=== PATIENT | female | born 2000 | race Hispanic/Latino ===

== ENCOUNTER 2021-05-15 09:58 | Outpatient (CLI) | payer OTHER ==
[2021-05-16 14:11] LABS: SARS-CoV-2 PCR by NAA Not Detected (NotDetected)
== END 2021-05-15 09:59 | disposition home or self-care (01) ==
LOC: CSHLAB 09:58
PROVIDERS: ATTEND Obstetrics & Gynecology
DX: Z20.822 Contact with and (suspected) exposure to COVID-19 (principal)
CPT/HCPCS: U0003; U0005

== ENCOUNTER 2021-05-19 05:30 | Inpatient (IN) | payer OTHER ==
[2021-05-19] MEDS: Lactated Ringer's 1,000 ML IV SCH ×2 (06:56→12:47)
[2021-05-19 07:05] VITALS: BMI 29.6
[2021-05-19] MEDS ORDERED: Methylergonovine 0.2 MG/ML VIAL IM PRN (07:14)
[2021-05-19] MEDS ORDERED: Ondansetron PF 4 MG/2 ML Vial IVP PRN (07:14)
[2021-05-19] MEDS ORDERED: Diphenoxylate HCl/Atropine Tablet PO PRN ×2 (07:14)
[2021-05-19] MEDS ORDERED: HYDROcodone/Acetaminophen 5/325 mg Tablet PO PRN (07:14)
[2021-05-19] MEDS ORDERED: Promethazine HCl 25 MG/ML VIAL IM PRN (07:14)
[2021-05-19] MEDS ORDERED: Acetaminophen 500 MG TAB PO PRN (07:14)
[2021-05-19] MEDS ORDERED: Butorphanol Tartrate 1 MG/ML VIAL SLOW IVP PRN (07:14)
[2021-05-19] MEDS ORDERED: hydrALAZINE 20 MG/ML VIAL SLOW IVP PRN (07:14)
[2021-05-19] MEDS ORDERED: Misoprostol 200 MCG TAB PR PRN (07:14)
[2021-05-19] MEDS ORDERED: Carboprost 250 MCG/ML AMP IM PRN (07:14)
[2021-05-19] MEDS ORDERED: Ibuprofen 800 MG TAB PO PRN (07:14)
[2021-05-19] MEDS ORDERED: Lidocaine 1% (PF) 30 ML VIAL SC PRN (07:14)
[2021-05-19] MEDS ORDERED: NS w/ Oxytocin 30 units 500 ML IVPB SCH (07:15)
[2021-05-19] MEDS ORDERED: NS w/ Oxytocin 30 units 500 ML IV SCH ×2 (07:15)
[2021-05-19] MEDS ORDERED: Misoprostol 200 MCG TAB PO PRN (07:20)
[2021-05-19] MEDS ORDERED: Misoprostol 100 MCG TAB VAG SCH (07:30)
[2021-05-19 08:06] LABS: Mean Corpuscular HGB CONC 32.2 g/dL (32.0-36.0); Mean Corpuscular Volume 77.8 fl (81.6-98.3); Mean Platelet Volume 9.5 fl (7.4-10.4); Platelet Count 224 10x3/uL (150-450); RBC Distribution Width 13.2 % (11.5-14.5); White Blood Cell (WBC) Count 6.4 10x3/uL (3.5-10.5)
[2021-05-19 08:34] LABS: Hep B Surf Ag Non-Reactive S/CO (NonReactive); Syphilis Antibody Nonreactive (Nonreactive); Syphilis Antibody Index 0.04 S/CO (<1.00 Non-Reactive)
[2021-05-19 08:37] LABS: HBSAg Index 0.19 S/CO (0-0.99)
[2021-05-19] MEDS ORDERED: Calcium Carbonate 500 MG ChewTAB PO PRN (22:51)
[2021-05-20] MEDS ORDERED: Bicitra 30 ML UDCUP PO PRN (09:59)
[2021-05-20] MEDS ORDERED: Famotidine/PF 20 mg/2ml Vial SLOW IVP PRN (09:59)
[2021-05-20] MEDS ORDERED: CEFAZOLIN 2 GM in Premix Bag 1 BAG IVPB SCH (10:00)
[2021-05-20] MEDS ORDERED: Azithromycin 500 MG in Sodium Chloride 0.9% 250 ML 250 ML IVPB SCH (10:00)
[2021-05-20] MEDS ORDERED: Phenylephrine 10 MG/ML VIAL ONE (10:10)
[2021-05-20] MEDS ORDERED: Dexamethasone 4 mg/ml Vial ONE (10:10)
[2021-05-20] MEDS ORDERED: Oxytocin 10 UNITS/ML VIAL ONE (10:10)
[2021-05-20] MEDS ORDERED: Ondansetron PF 4 MG/2 ML Vial ONE (10:10)
[2021-05-20] MEDS ORDERED: Fentanyl 100 MCG/2 ML VIAL ONE (10:16)
[2021-05-20] MEDS ORDERED: Morphine PF 10 MG/10 ML VIAL ONE (10:16)
[2021-05-20] MEDS ORDERED: Ketorolac Tromethamine 30 MG/ML VIAL ONE (10:21)
[2021-05-20] MEDS ORDERED: Naloxone HCl 0.4 mg/ml Vial IV PRN (11:54)
[2021-05-20] MEDS ORDERED: Fentanyl 100 MCG/2 ML VIAL SLOW IVP PRN (11:54)
[2021-05-20] MEDS ORDERED: Promethazine HCl 25 MG SUPP PR PRN (11:54)
[2021-05-20] MEDS ORDERED: Promethazine HCl 25 MG/ML VIAL IM PRN ×2 (11:54→15:43)
[2021-05-20] MEDS ORDERED: Ondansetron HCl/PF 4 MG/2 ML Vial IVP PRN (11:54)
[2021-05-20] MEDS ORDERED: Ondansetron PF 4 MG/2 ML Vial IVP PRN ×2 (11:54→15:43)
[2021-05-20] MEDS ORDERED: diphenhydrAMINE 50 MG/ML VIAL IVP PRN (11:54)
[2021-05-20] MEDS ORDERED: Naloxone HCl 0.4 mg/ml Vial IVP PRN ×2 (11:54)
[2021-05-20] MEDS ORDERED: Meperidine HCl/PF 25 MG/ML VIAL SLOW IVP PRN (11:54)
[2021-05-20] MEDS ORDERED: Hydrocerin (Eucerin) Cream 120 gm Jar TOP PRN (11:54)
[2021-05-20] MEDS ORDERED: Ketorolac Tromethamine 30 MG/ML VIAL IVP SCH (12:00)
[2021-05-20] MEDS ORDERED: Communication Order-Pharmacy FS SCH (12:00)
[2021-05-20] MEDS ORDERED: Bisacodyl 10 MG SUPP PR PRN (15:43)
[2021-05-20] MEDS ORDERED: Milk Of Magnesia 30 ML UDCUP PO PRN (15:43)
[2021-05-20] MEDS ORDERED: NS w/ Oxytocin 30 units 500 ML IV SCH (15:43)
[2021-05-20] MEDS ORDERED: Measles/Mumps/Rubella 10 MCG/0.5 ML VIAL SC ONE (15:43)
[2021-05-20] MEDS ORDERED: Preparation H Ointment 28 GM TUBE PR PRN (15:43)
[2021-05-20] MEDS ORDERED: hydrALAZINE 20 MG/ML VIAL SLOW IVP PRN (15:43)
[2021-05-20] MEDS ORDERED: Lanolin Ointment 7 GM TUBE TOP PRN (15:43)
[2021-05-20] MEDS ORDERED: Benzocaine-Menthol 82.5 ML CAN TOP PRN (15:43)
[2021-05-20] MEDS ORDERED: Misoprostol 200 MCG TAB VAG PRN (15:43)
[2021-05-20] MEDS ORDERED: Methylergonovine 0.2 MG/ML VIAL IM PRN (15:43)
[2021-05-20] MEDS ORDERED: Varicella virus, LIVE 0.5 ML VIAL SC ONE (15:43)
[2021-05-20] MEDS ORDERED: diphenhydrAMINE 25 MG CAP PO PRN (15:43)
[2021-05-20] MEDS ORDERED: Boostrix 0.5 ML (Tdap) VIAL IM ONE (15:43)
[2021-05-20] MEDS: Lactated Ringer's 1,000 ML IV SCH ×2 (16:23→16:24)
[2021-05-20] MEDS: Ferrous Sulfate 325 MG TAB PO SCH (17:45)
[2021-05-20] MEDS: Docusate Calcium (SURFAK) 240 MG CAP PO SCH (20:57)
[2021-05-20] MEDS: Ketorolac Tromethamine 30 MG/ML VIAL IVP SCH (20:59)
[2021-05-20] MEDS ORDERED: Zolpidem Tartrate 5 MG TAB PO PRN (23:59)
[2021-05-21] MEDS: Ketorolac Tromethamine 30 MG/ML VIAL IVP SCH ×3 (01:58→13:53)
[2021-05-21 05:31] LABS: Mean Corpuscular HGB CONC 32.9 g/dL (32.0-36.0); Mean Corpuscular Hemoglobin 25.4 pg (27.0-33.0); Mean Corpuscular Volume 77.2 fl (81.6-98.3); Mean Platelet Volume 9.7 fl (7.4-10.4); Platelet Count 157 10x3/uL (150-450); RBC Distribution Width 13.2 % (11.5-14.5); Red Blood Cell (RBC) Count 2.76 10x6/uL (3.90-5.03); White Blood Cell (WBC) Count 10.5 10x3/uL (3.5-10.5)
[2021-05-21] MEDS: Ferrous Sulfate 325 MG TAB PO SCH ×2 (08:33→16:47)
[2021-05-21] MEDS: Docusate Calcium (SURFAK) 240 MG CAP PO SCH ×2 (08:33→21:36)
[2021-05-21] MEDS: Prenatal Vitamin 1 TAB PO SCH (08:33)
[2021-05-21] MEDS: HYDROcodone/Acetaminophen 5/325 mg Tablet PO PRN (19:57)
[2021-05-21] MEDS: Ibuprofen 800 MG TAB PO SCH (21:36)
[2021-05-22] MEDS: Ibuprofen 800 MG TAB PO SCH ×2 (05:08→13:28)
[2021-05-22 08:55] VITALS: BP 131/66; TEMP 98.1
[2021-05-22] MEDS: Ferrous Sulfate 325 MG TAB PO SCH (08:59)
[2021-05-22] MEDS: Prenatal Vitamin 1 TAB PO SCH (09:00)
[2021-05-22] MEDS: Docusate Calcium (SURFAK) 240 MG CAP PO SCH (09:00)
[2021-05-22] MEDS: HYDROcodone/Acetaminophen 5/325 mg Tablet PO PRN (10:43)
== END 2021-05-22 13:50 | disposition home or self-care (01) | DRG 788 ==
LOC: CSHLD 05:47 → CSHPP 05-20 16:10
PROVIDERS: ADMIT Obstetrics & Gynecology; ATTEND Obstetrics & Gynecology
PROC: 10D00Z1 Extraction of Products of Conception, Low, Open Approach (ICD-10-PCS; principal; 2021-05-20)
PROC: 3E0P7VZ Introduction of Hormone into Female Reproductive, Via Natural or Artificial Opening (ICD-10-PCS; 2021-05-20)
PROC: 3E033VJ Introduction of Other Hormone into Peripheral Vein, Percutaneous Approach (ICD-10-PCS; 2021-05-20)
DX: O32.1XX0 Maternal care for breech presentation, not applicable or unspecified (principal); Z3A.39 39 weeks gestation of pregnancy; Z37.0 Single live birth; O62.0 Primary inadequate contractions
CPT/HCPCS: 36415; 51702; 85027; 86780; 86850; 86900; 86901; 87340; J0456; J1100; J1885; J2274; J2370; J2405; J2590; J3010; J7050; J7120

== ENCOUNTER 2022-06-28 18:32 | Emergency (ER) | payer OTHER | END 2022-06-28 20:43 | disposition home or self-care (01) | LOC: CSHERS 18:32 | DX: O9A.211 Injury, poisoning and certain other consequences of external causes complicating pregnancy, first trimester (principal); S40.011A Contusion of right shoulder, initial encounter; V89.2XXA Person injured in unspecified motor-vehicle accident, traffic, initial encounter; Z3A.01 Less than 8 weeks gestation of pregnancy | CPT/HCPCS: 99283 ==

== ENCOUNTER 2022-09-14 22:07 | Day surgery (SDC) | payer OTHER ==
[2022-09-14 22:31] VITALS: BMI 26.2
[2022-09-14] MEDS ORDERED: hydrALAZINE 20 MG/ML VIAL SLOW IVP PRN (22:53)
== END 2022-09-15 00:32 | disposition home or self-care (01) ==
LOC: CSHLD/OP 22:07
PROVIDERS: ATTEND Obstetrics & Gynecology
DX: O46.93 Antepartum hemorrhage, unspecified, third trimester (principal); Z79.899 Other long term (current) drug therapy; Z3A.35 35 weeks gestation of pregnancy
CPT/HCPCS: 76815

== ENCOUNTER 2022-10-12 10:08 | Inpatient (IN) | payer OTHER ==
[2022-10-12] MEDS ORDERED: Tranexamic Acid 1,000 MG/10 ML VIAL IVP PRN (11:07)
[2022-10-12] MEDS ORDERED: Diphenoxylate HCl/Atropine Tablet PO PRN ×2 (11:07)
[2022-10-12] MEDS ORDERED: Misoprostol 200 MCG TAB PR PRN (11:07)
[2022-10-12] MEDS ORDERED: Carboprost 250 MCG/ML AMP IM PRN (11:07)
[2022-10-12] MEDS ORDERED: Promethazine HCl 25 MG/ML VIAL IM PRN ×3 (11:07→13:30)
[2022-10-12] MEDS ORDERED: Famotidine/PF 20 mg/2ml Vial SLOW IVP PRN (11:07)
[2022-10-12] MEDS ORDERED: Bicitra 30 ML UDCUP PO PRN (11:07)
[2022-10-12] MEDS ORDERED: hydrALAZINE 20 MG/ML VIAL SLOW IVP PRN ×2 (11:07→15:24)
[2022-10-12] MEDS ORDERED: Ondansetron PF 4 MG/2 ML Vial IVP PRN ×4 (11:07→15:24)
[2022-10-12] MEDS ORDERED: Methylergonovine 0.2 MG/ML VIAL IM PRN (11:07)
[2022-10-12] MEDS ORDERED: CEFAZOLIN 2 GM in Sodium Chloride 0.9% 100 ML IVPB SCH (11:15)
[2022-10-12] MEDS ORDERED: NS w/ Oxytocin 30 units 500 ML IV SCH (11:15)
[2022-10-12 11:38] LABS: Hemoglobin 9.2 g/dL (12.0-15.5); Mean Corpuscular Hemoglobin 22.5 pg (27.0-33.0); Mean Corpuscular Volume 72.6 fl (81.6-98.3); Mean Platelet Volume 9.1 fl (7.4-10.4); Platelet Count 236 10x3/uL (150-450); Red Blood Cell (RBC) Count 4.09 10x6/uL (3.90-5.03)
[2022-10-12 11:59] LABS: Syphilis Antibody Nonreactive (Nonreactive); Syphilis Antibody Index 0.05 S/CO (<1.00 Non-Reactive)
[2022-10-12 12:01] LABS: Hep B Surf Ag - L&D Non-Reactive S/CO (NonReactive)
[2022-10-12] MEDS ORDERED: Morphine PF 10 MG/10 ML VIAL ONE (12:10)
[2022-10-12] MEDS ORDERED: Fentanyl 250 MCG/5 ML VIAL ONE (12:10)
[2022-10-12] MEDS ORDERED: PHENYLEPHRINE-NS 100 MCG/ML 10 ML SYRINGE ONE (12:16)
[2022-10-12] MEDS ORDERED: Ondansetron PF 4 MG/2 ML Vial ONE (12:25)
[2022-10-12] MEDS ORDERED: Dexamethasone 4 mg/ml Vial ONE (12:25)
[2022-10-12] MEDS ORDERED: Oxytocin 10 UNITS/ML VIAL ONE (12:25)
[2022-10-12] MEDS ORDERED: ePHEDrine Sulfate 50 MG/10 ML VIAL ONE (12:36)
[2022-10-12] MEDS ORDERED: Ketorolac Tromethamine 30 MG/ML VIAL ONE (13:02)
[2022-10-12] MEDS ORDERED: Moisturizing Cream (Eucerin) 113 GM JAR TOP PRN ×2 (13:29→13:30)
[2022-10-12] MEDS ORDERED: Promethazine HCl 25 MG SUPP PR PRN ×2 (13:29→13:30)
[2022-10-12] MEDS ORDERED: Meperidine HCl/PF 25 MG/ML VIAL SLOW IVP PRN ×2 (13:29→13:30)
[2022-10-12] MEDS ORDERED: Ketorolac Tromethamine 30 MG/ML VIAL IVP PRN ×2 (13:29→13:30)
[2022-10-12] MEDS ORDERED: Naloxone HCl 0.4 mg/ml Vial IV PRN ×2 (13:29→13:30)
[2022-10-12] MEDS ORDERED: Ondansetron HCl/PF 4 MG/2 ML Vial IVP PRN ×2 (13:29→13:30)
[2022-10-12] MEDS ORDERED: Fentanyl 100 MCG/2 ML VIAL SLOW IVP PRN ×2 (13:29→13:30)
[2022-10-12] MEDS ORDERED: Naloxone HCl 0.4 mg/ml Vial IVP PRN ×4 (13:29→13:30)
[2022-10-12] MEDS ORDERED: diphenhydrAMINE 50 MG/ML VIAL IVP PRN ×2 (13:29→13:30)
[2022-10-12] MEDS ORDERED: Communication Order-Pharmacy FS SCH ×2 (13:30)
[2022-10-12] MEDS ORDERED: Ketorolac Tromethamine 30 MG/ML VIAL IVP SCH ×2 (13:30)
[2022-10-12] MEDS ORDERED: HYDROmorphone 2 MG/ML VIAL SLOW IVP PRN (13:30)
[2022-10-12] MEDS ORDERED: Meperidine HCl/PF 25 MG/ML VIAL ONE (14:38)
[2022-10-12] MEDS ORDERED: Bisacodyl 10 MG SUPP PR PRN (15:24)
[2022-10-12] MEDS ORDERED: Lanolin Ointment 7 GM TUBE TOP PRN (15:24)
[2022-10-12] MEDS ORDERED: Boostrix 0.5 ML (Tdap) VIAL (>/=7 yrs of age) IM ONE (15:24)
[2022-10-13] MEDS ORDERED: HYDROcodone/Acetaminophen 5/325 mg Tablet PO PRN (01:30)
[2022-10-13 03:28] LABS: Hemoglobin 7.6 g/dL (12.0-15.5); Mean Corpuscular HGB CONC 30.6 g/dL (32.0-36.0); Mean Corpuscular Hemoglobin 22.4 pg (27.0-33.0); Mean Corpuscular Volume 73.2 fl (81.6-98.3); Mean Platelet Volume 9.4 fl (7.4-10.4); Platelet Count 198 10x3/uL (150-450); RBC Distribution Width 14.7 % (11.5-14.5); Red Blood Cell (RBC) Count 3.39 10x6/uL (3.90-5.03); White Blood Cell (WBC) Count 11.3 10x3/uL (3.5-10.5)
[2022-10-13] MEDS: Lactated Ringer's 1,000 ML IV SCH ×2 (08:57→08:58)
[2022-10-13] MEDS: Ferrous Sulfate 325 MG TAB PO SCH ×3 (09:00→21:55)
[2022-10-13] MEDS: Docusate 100 MG CAP PO SCH ×3 (09:00→21:55)
[2022-10-13] MEDS: Prenatal Vitamin 1 TAB PO SCH (09:09)
[2022-10-13] MEDS ORDERED: Ibuprofen 800 MG TAB PO SCH (19:00)
[2022-10-13] MEDS: Simethicone Chewable 80 MG TAB PO PRN (21:56)
[2022-10-13] MEDS: Ibuprofen 800 MG TAB PO SCH (21:56)
[2022-10-13] MEDS: HYDROcodone/Acetaminophen 5/325 mg Tablet PO PRN (21:56)
[2022-10-14] MEDS: Ibuprofen 800 MG TAB PO SCH ×2 (06:01→14:24)
[2022-10-14] MEDS: Simethicone Chewable 80 MG TAB PO PRN (06:02)
[2022-10-14] MEDS: HYDROcodone/Acetaminophen 5/325 mg Tablet PO PRN (06:02)
[2022-10-14] MEDS: Lactated Ringer's 1,000 ML IV SCH ×2 (06:41→10:31)
[2022-10-14] MEDS: Docusate 100 MG CAP PO SCH (10:29)
[2022-10-14] MEDS: Prenatal Vitamin 1 TAB PO SCH (10:30)
[2022-10-14] MEDS: Ferrous Sulfate 325 MG TAB PO SCH (10:30)
[2022-10-14 11:18] VITALS: BP 113/69; TEMP 97.7
== END 2022-10-14 15:15 | disposition home or self-care (01) | DRG 788 ==
LOC: CSHLD 10:08 → CSHPP 16:00
PROVIDERS: ADMIT Obstetrics & Gynecology; ATTEND Obstetrics & Gynecology
PROC: 10D00Z1 Extraction of Products of Conception, Low, Open Approach (ICD-10-PCS; principal; 2022-10-12)
DX: O34.211 Maternal care for low transverse scar from previous cesarean delivery (principal); Z3A.39 39 weeks gestation of pregnancy; Z37.0 Single live birth
CPT/HCPCS: 51702; 85027; 86780; 86850; 86900; 86901; 87340; J1100; J1885; J2175; J2274; J2405; J2590; J3010; J3490; S0028

== ENCOUNTER 2023-08-15 15:30 | Emergency (ER) | payer OTHER | END 2023-08-15 18:15 | disposition home or self-care (01) | LOC: CSHERS 15:30 | DX: H61.21 Impacted cerumen, right ear (principal) | CPT/HCPCS: 99282 ==

== ENCOUNTER 2023-11-06 13:49 | Day surgery (SDC) | payer OTHER, SELFPAY ==
[2023-11-06 14:10] VITALS: BMI 26.5
[2023-11-06 15:18] LABS: Bilirubin Neg (Negative); Blood, Urine Negative (Negative); Clarity Clear (Clear); Glucose, Urine (Dipstick) Normal (Negative); Ketone, Urine 15 mg/dL (Negative); Leukocyte 25 (Negative); Nitrite Negative (Negative); Protein, Urine (Dipstick) 15 mg/dl (Neg-Trace); Specific Gravity, Urine 1.015 (1.005-1.030); Urobilinogen Normal mg/dL (Less than 2)
[2023-11-06] MEDS: Acetaminophen 500 MG TAB PO SCH (15:26)
[2023-11-06 15:32] LABS: Bacteria/HPF 3+ HPF (None Seen); CAUTI Indications for Culture Pregnancy; Mucous/LPF 2+ LPF (<2+); RBC/HPF None Seen HPF (0-3); WBC/HPF 0-3 HPF (0-3)
[2023-11-06 15:33] LABS: Urine Culture Reflex Yes Yes
== END 2023-11-06 15:56 | disposition home or self-care (01) ==
LOC: CSHLD/OP 13:49
PROVIDERS: ATTEND Obstetrics & Gynecology
DX: O99.891 Other specified diseases and conditions complicating pregnancy (principal); R10.32 Left lower quadrant pain; R42 Dizziness and giddiness; O34.211 Maternal care for low transverse scar from previous cesarean delivery; O23.43 Unspecified infection of urinary tract in pregnancy, third trimester; Z3A.29 29 weeks gestation of pregnancy; Z79.899 Other long term (current) drug therapy
CPT/HCPCS: 81001; 87086